=== PATIENT | female | born 1990 | race Caucasian/White ===

== ENCOUNTER 2023-04-23 04:47 | Emergency (ER) | payer OTHER ==
[2023-04-23 05:41] LABS: Absolute Lymphocytes (CBC) 1.4 K/uL (0.7-4.9); Hematocrit 44.5 % (36.0-45.0); Lymphocytes % 15.2 % (15.3-44.8); MCV 94.5 fL (80-100); MPV 8.5 fL (7.6-11.3); Platelets 221 thou/uL (152-406); RBC Red Blood Cell Count 4.71 M/uL (3.86-4.86)
[2023-04-23 05:43] LABS: Urine Bilirubin NEGATIVE (Negative); Urine Blood Negative (Negative); Urine Clarity Turbid (Clear); Urine Color Yellow (Yellow); Urine Glucose NEGATIVE (Negative)
[2023-04-23 05:44] LABS: Urine Bacteria None Seen /HPF (<20); Urine Protein NEGATIVE (Negative); Urine RBC None Seen /HPF (None Seen); Urine Urobilinogen Normal (Normal)
[2023-04-23 05:56] LABS: Albumin 4.1 g/dL (3.4-5.0); Bilirubin Total 1.1 mg/dL (0.2-1.0); Potassium 3.5 mEq/L (3.5-5.1); Protein, Total 8.4 g/dL (6.4-8.2)
[2023-04-23] MEDS ORDERED: NA CHLORIDE 0.9% 1,000 ML ONE (06:19)
[2023-04-23] MEDS ORDERED: DIPHENHYDRAMINE 50 MG/ML VIAL ONE (06:19)
[2023-04-23] MEDS ORDERED: METOCLOPRAMIDE 10 MG/2mL INJ ONE (06:19)
[2023-04-23] MEDS ORDERED: KETOROLAC 30 MG/ML INJ ONE (06:19)
[2023-04-23 07:00] LABS: SARS-CoV-2 Antigen Rapid Res Negative (Negative)
--- NOTE | 2023-04-23 07:10 | EDPHYS ---
Physician Documentation [facility] Name: Elise Rae Age: 33 yrs Sex: Female : 1990 Arrival Date: 04/23/2023 Time: 04:47 Bed 5 Private MD: ED Physician Salvador Huitron HPI: 04/23 05:34 This 33 yrs old Female presents to ER via Ambulatory with complaints of rupinder Headache. 05:34 The patient complains of pain to the top of head, forehead, left frontal area, left rupinder side of the back of head, right frontal area and right side of the back of head. The patient describes the headache as aching, constant. Onset: The symptoms/episode began/occurred yesterday. Associated signs and symptoms: The patient has no apparent associated signs or symptoms. Severity of symptoms: At its worst the pain was moderate, in the emergency department the pain is unchanged. Headache History: The patient has had previous headaches and this one is different than previous episodes. The symptoms are alleviated by nothing. the symptoms are aggravated by nothing. The patient has not experienced similar symptoms in the past. Historical: - Allergies: 05:14 No Known Allergies; pf1 - PMHx: 05:14 None; pf1 - PSHx: 05:14 gastric sleeve; left hand repair; pf1 05:15 left foot surgery; pf1 - Immunization history:: Adult Immunizations up to date, Client reports having NOT received the Covid vaccine. Last tetanus immunization: > 10 years ago Flu vaccine is not up to date. - Social history:: Smoking status: Patient denies any tobacco usage or history of. Patient uses alcohol, occasionally. Patient/guardian denies using street drugs. ROS: 05:35 Constitutional: Negative for fever, chills, and weight loss, Eyes: Negative for injury, rupinder pain, redness, and discharge, ENT: Negative for injury, pain, and discharge, Neck: Negative for injury, pain, and swelling, Cardiovascular: Negative for chest pain, palpitations, and edema, Respiratory: Negative for shortness of breath, cough, wheezing, and pleuritic chest pain, Abdomen/GI: Negative for abdominal pain, nausea, vomiting, diarrhea, and constipation, Back: Negative for injury and pain, : Negative for injury, bleeding, discharge, and swelling, MS/Extremity: Negative for injury and deformity, Skin: Negative for injury, rash, and discoloration, Psych: Negative for depression, anxiety, suicide ideation, homicidal ideation, and hallucinations, Allergy/Immunology: Negative for hives, rash, and allergies, Endocrine: Negative for neck swelling, polydipsia, polyuria, polyphagia, and marked weight changes, Hematologic/Lymphatic: Negative for swollen nodes, abnormal bleeding, and unusual bruising, 05:35 Neuro: Positive for headache, weakness, Exam: 05:35 Constitutional: This is a well developed, well nourished patient who is awake, alert, rupinder and in no acute distress. Head/Face: Normocephalic, atraumatic. Eyes: Pupils equal round and reactive to light, extra-ocular motions intact. Lids and lashes normal. Conjunctiva and sclera are non-icteric and not injected. Cornea within normal limits. Periorbital areas with no swelling, redness, or edema. ENT: Nares patent. No nasal discharge, no septal abnormalities noted. Tympanic membranes are normal and external auditory canals are clear. Oropharynx with no redness, swelling, or masses, exudates, or evidence of obstruction, uvula midline. Mucous membranes moist. Neck: Trachea midline, no thyromegaly or masses palpated, and no cervical lymphadenopathy. Supple, full range of motion without nuchal rigidity, or vertebral point tenderness. No Meningismus. Chest/axilla: Normal chest wall appearance and motion. Nontender with no deformity. No lesions are appreciated. Cardiovascular: Regular rate and rhythm with a normal S1 and S2. No gallops, murmurs, or rubs. Normal PMI, no JVD. No pulse deficits. Respiratory: Lungs have equal breath sounds bilaterally, clear to auscultation and percussion. No rales, rhonchi or wheezes noted. No increased work of breathing, no retractions or nasal flaring. Abdomen/GI: Soft, non-tender, with normal bowel sounds. No distension or tympany. No guarding or rebound. No evidence of tenderness throughout. Back: No spinal tenderness. No costovertebral tenderness. Full range of motion. Skin: Warm, dry with normal turgor. Normal color with no rashes, no lesions, and no evidence of cellulitis. MS/ Extremity: Pulses equal, no cyanosis. Neurovascular intact. Full, normal range of motion. Neuro: Awake and alert, GCS 15, oriented to person, place, time, and situation. Cranial nerves II-XII grossly intact. Motor strength 5/5 in all extremities. Sensory grossly intact. Cerebellar exam normal. Normal gait. 05:35 Neck: ROM/movement: is normal, no acute changes, Meningeal signs: are not present, Kernig's sign is negative, Brudzinski's sign is negative, Vital Signs: 05:02 BP 127 / 94; Pulse 86; Resp 16; Temp 97.8; Pulse Ox 98% on R/A; Weight 89.36 kg; Height pf1 5 ft. 6 in. ; Pain 10/10; 06:30 BP 120 / 83; Pulse 76; Resp 16; Pulse Ox 96% on R/A; km8 05:02 Body Mass Index 31.80 (89.36 kg, 167.64 cm) pf1 05:02 Pain Scale: Adult pf1 [place] Coma Score: 06:45 Eye Response: spontaneous(4). Motor Response: obeys commands(6). Verbal Response: km8 oriented(5). Total: 15. MDM: 04:52 Patient medically screened. [facility] 04/23 05:22 Order name: CBC with Diff; Complete Time: 06:21 [facility] 04/23 05:22 Order name: Comprehensive Metabolic Panel; Complete Time: 06:21 [facility] 04/23 05:22 Order name: Urinalysis w/ reflexes; Complete Time: 06:21 [facility] 04/23 05:22 Order name: PREGU; Complete Time: 06:21 [facility] 04/23 05:38 Order name: SARS RAPID; Complete Time: 07:13 [facility] 04/23 05:38 Order name: Flu; Complete Time: 07:13 [facility] 04/23 05:22 Order name: CT Head Brain wo Cont [facility] 04/23 05:33 Order name: CT Head Angio [facility] 04/23 05:33 Order name: CT Neck Angio [facility] 04/23 05:33 Order name: Oxygen: 2 liters; Complete Time: 06:43 [facility] Administered Medications: 06:13 Drug: NS 0.9% IV 1000 ml IV at 1 bolus Per protocol; 1000 mL bolus Route: IV; Rate: 1 pf1 bolus; Site: left antecubital; 07:20 Follow up: IV Status: Completed infusion iw 06:13 Drug: Ketorolac IVP 30 mg IVP once Route: IVP; Site: left antecubital; pf1 06:45 Follow up: Response: No adverse reaction km8 06:13 Drug: metoCLOPramide IVP 10 mg IVP once; over 1 to 2 minutes Route: IVP; Site: left pf1 antecubital; 06:44 Follow up: Response: No adverse reaction km8 06:13 Drug: diphenhydrAMINE IVP 50 mg IVP once Route: IVP; Site: left antecubital; pf1 06:44 Follow up: Response: No adverse reaction km8 Disposition Summary: 04/23/23 07:10 Discharge Ordered Notes: Location: Home rupinder Problem: new rupinder Symptoms: have improved rupinder Condition: Stable rupinder Diagnosis - Headache rupinder Followup: rupinder - With: Private Physician - When: 2 - 3 days - Reason: Recheck today's complaints, Continuance of care, Re-evaluation by your physician Followup: rupinder - With: Param Cobian MD - When: 2 - 3 days - Reason: Recheck today's complaints, Re-evaluation by your physician Discharge Instructions: - Discharge Summary Sheet rupinder - General Headache Without Cause rupinder - Migraine Headache rupinder - Migraine Headache, [id number] rupinder - General Headache Without Cause, [id number] rupinder Forms: - Medication Reconciliation Form [facility] - Thank You Letter [facility] - Antibiotic Education rupinder - Prescription Opioid Use rupinder - Patient Portal Instructions [facility] - Leadership Thank You Letter [facility] Prescriptions: - Fioricet with Codeine [id number] mg Oral capsule - take 2 capsule ORAL route every 4 hours do not exceed 6 caps per day; 20 rupinder capsule; Refills: 0, Product Selection Permitted - ondansetron 4 mg Oral Tablet,disintegrating - take 1 tablet ORAL route every 6 to 8 hours for 3 days; 20 tablet; Refills: 0, rupinder Product Selection Permitted Signatures: Dispatcher [employer] Salvador Donis MD MD cha Patel, Setul, MD MD sp3 Marcelle Arthur RN RN pf1 Naty Elizabeth RN iw Lesly Phoenix RN km8 Corrections: (The following items were deleted from the chart) 05:15 05:14 PSHx: let foot surgery; pf1 pf1
--- NOTE | 2023-04-23 07:10 | ER ---
Nurse's Notes [facility] Name: Elise Rae Age: 33 yrs Sex: Female : 1990 Arrival Date: 04/23/2023 Time: 04:47 Bed 5 Private MD: Diagnosis: Headache Presentation: 04/23 05:02 Chief complaint: Patient states: headache pain of 10,onset yesterday with nausea this pf1 AM. Coronavirus screen: Vaccine status: Patient reports being unvaccinated. Client denies travel out of the [place] in the last 14 days. At this time, the client does not indicate any symptoms associated with coronavirus-19. Ebola Screen: Patient negative for fever greater than or equal to 101.5 degrees Fahrenheit, and additional compatible Ebola Virus Disease symptoms. Initial Sepsis Screen: Does the patient meet any 2 criteria? No. Patient's initial sepsis screen is negative. Does the patient have a suspected source of infection? No. Patient's initial sepsis screen is negative. Risk Assessment: Do you want to hurt yourself or someone else? Patient reports no desire to harm self or others. 05:02 Method Of Arrival: Ambulatory pf1 05:02 Acuity: VIOLETA 3 pf1 06:47 Onset of symptoms was April 23, 2023. km8 Triage Assessment: 05:15 Headache History: The patient has had previous headaches and this one is different than pf1 previous episodes. General: Appears in no apparent distress. comfortable, well groomed, well developed, Behavior is calm, cooperative, appropriate for age, quiet. Pain: Complains of pain in generalized Pain currently is 10 out of 10 on a pain scale. EENT: No deficits noted. No signs and/or symptoms were reported regarding the EENT system. Neuro: Level of Consciousness is awake, alert, obeys commands, Oriented to person, place, time, situation, Reports headache in right in left frontal area, occipital area. Cardiovascular: No deficits noted. Capillary refill < 3 seconds Patient's skin is warm and dry. Respiratory: No deficits noted. Airway is patent Respiratory effort is even, unlabored, Respiratory pattern is regular, symmetrical. GI: Abdomen is round non-distended, Reports nausea. : No deficits noted. No signs and/or symptoms were reported regarding the genitourinary system. Derm: No deficits noted. No signs and/or symptoms reported regarding the dermatologic system. 07:22 Pain: Pain began Also complains of no other associated symptoms. iw Historical: - Allergies: 05:14 No Known Allergies; pf1 - PMHx: 05:14 None; pf1 - PSHx: 05:14 gastric sleeve; left hand repair; pf1 05:15 left foot surgery; pf1 - Immunization history:: Adult Immunizations up to date, Client reports having NOT received the Covid vaccine. Last tetanus immunization: > 10 years ago Flu vaccine is not up to date. - Social history:: Smoking status: Patient denies any tobacco usage or history of. Patient uses alcohol, occasionally. Patient/guardian denies using street drugs. Screenin:29 [facility] ED Fall Risk Assessment (Adult) History of falling in the last 3 months, pf1 including since admission No falls in past 3 months (0 pts) Confusion or Disorientation No (0 pts) Intoxicated or Sedated No (0 pts) Impaired Gait No (0 pts) Mobility Assist Device Used No (0 pt) Altered Elimination No (0 pt) Score/Fall Risk Level 0 - 2 = Low Risk Oriented to surroundings, Maintained a safe environment, Educated pt \T\ family on fall prevention, incl call for assistance when getting out of bed, Assessed \T\ reinforced patient's understanding of fall precautions, Provided non-skid footwear, Hourly rounding (assess needs \T\ fall precautionary measures) done, Used ambulatory aids as needed (educated on \T\ assisted with), Used gait belt as appropriate. Abuse screen: Denies threats or abuse. Nutritional screening: No deficits noted. Tuberculosis screening: No symptoms or risk factors identified. Assessment: 05:34 Reassessment: see triage assessment. pf1 06:45 General: Appears in no apparent distress. comfortable, Behavior is calm, cooperative, km8 appropriate for age. Pain: Complains of pain in head Pain currently is 4 out of 10 on a pain scale. Quality of pain is described as aching. Neuro: [place] Agitation-Sedation Scale (RASS): 0 - Alert and Calm Level of Consciousness is awake, alert, obeys commands, Oriented to person, place, time, situation, Reports headache. Cardiovascular: Denies chest pain, shortness of breath, Capillary refill < 3 seconds Patient's skin is warm and dry. Respiratory: Airway is patent Respiratory effort is even, unlabored, Respiratory pattern is regular, symmetrical. GI: No signs and/or symptoms were reported involving the gastrointestinal system. : No signs and/or symptoms were reported regarding the genitourinary system. EENT: No signs and/or symptoms were reported regarding the EENT system. Derm: No signs and/or symptoms reported regarding the dermatologic system. Skin is intact, Skin is dry, Skin is pink, warm \T\ dry. normal, Skin temperature is warm. Musculoskeletal: No signs and/or symptoms reported regarding the musculoskeletal system. Range of motion: intact in all extremities. 07:09 Reassessment: Patient appears in no apparent distress at this time. Patient and/or iw family updated on plan of care and expected duration. Pain level reassessed. Patient is alert, oriented x 3, equal unlabored respirations, skin warm/dry/pink. Vital Signs: 05:02 BP 127 / 94; Pulse 86; Resp 16; Temp 97.8; Pulse Ox 98% on R/A; Weight 89.36 kg; Height pf1 5 ft. 6 in. ; Pain 10/10; 06:30 BP 120 / 83; Pulse 76; Resp 16; Pulse Ox 96% on R/A; km8 05:02 Body Mass Index 31.80 (89.36 kg, 167.64 cm) pf1 05:02 Pain Scale: Adult pf1 [place] Coma Score: 06:45 Eye Response: spontaneous(4). Motor Response: obeys commands(6). Verbal Response: km8 oriented(5). Total: 15. ED Course: 04:51 Patient arrived in ED. [email or web address] 04:51 Salvador Huitron MD is Attending Physician. rupinder 05:14 Triage completed. pf1 05:30 No provider procedures requiring assistance completed. Inserted saline lock: 22 gauge pf1 in left antecubital area, using aseptic technique. Blood collected. 05:34 Patient has correct armband on for positive identification. pf1 05:34 PREGU Sent. pf1 05:34 Urinalysis w/ reflexes Sent. pf1 05:34 Comprehensive Metabolic Panel Sent. pf1 05:35 CBC with Diff Sent. pf1 06:03 CT Head Brain wo Cont In Process Unspecified. EDMS 06:03 CT Head Angio In Process Unspecified. EDMS 06:03 CT Neck Angio In Process Unspecified. EDMS 06:14 Flu Sent. pf1 06:14 SARS RAPID Sent. pf1 06:42 Lesly Phoenix, RN is Primary Nurse. km8 06:45 Pulse ox on. NIBP on. Door closed. Noise minimized. Lights dimmed. Warm blanket given. km8 06:45 Oxygen administration via nasal cannula \T\ 2L/min. km8 06:47 Arm band placed on right wrist. km8 07:09 Primary Nurse role handed off by Lesly Phoenix, NA iw 07:09 Naty Elizabeth, RN is Primary Nurse. iw 07:10 Param Cobian MD is Referral Physician. rupinder 07:22 IV discontinued, intact, bleeding controlled, No redness/swelling at site. Pressure iw dressing applied. Administered Medications: 06:13 Drug: NS 0.9% IV 1000 ml IV at 1 bolus Per protocol; 1000 mL bolus Route: IV; Rate: 1 pf1 bolus; Site: left antecubital; 07:20 Follow up: IV Status: Completed infusion iw 06:13 Drug: Ketorolac IVP 30 mg IVP once Route: IVP; Site: left antecubital; pf1 06:45 Follow up: Response: No adverse reaction km8 06:13 Drug: metoCLOPramide IVP 10 mg IVP once; over 1 to 2 minutes Route: IVP; Site: left pf1 antecubital; 06:44 Follow up: Response: No adverse reaction km8 06:13 Drug: diphenhydrAMINE IVP 50 mg IVP once Route: IVP; Site: left antecubital; pf1 06:44 Follow up: Response: No adverse reaction km8 Medication: 06:45 VIS not applicable for this client. km8 Outcome: 07:10 Discharge ordered by . rupinder 07:23 Discharged to home ambulatory, iw 07:23 Condition: good 07:23 Discharge instructions given to patient, Instructed on discharge instructions, follow up and referral plans. medication usage, Demonstrated understanding of instructions, follow-up care, medications, Prescriptions given X 2, 07:24 Patient left the ED. iw Signatures: Dispatcher [employer] Salvador Donis MD MD cha Williams, Irene, RN RN iw Zahida Hess j6 Marcelle Arthur RN RN pf1 Lesly Phoenix RN RN km8 Corrections: (The following items were deleted from the chart) 05:15 05:14 PSHx: let foot surgery; pf1 pf1
[2023-04-23 07:39] VITALS: TEMP 97.8
[2023-04-23 07:49] VITALS: BP 120/83; O2SAT 96
--- NOTE | 2023-04-23 21:38 | RAD REPORT ---
EXAM DESCRIPTION: CT - Head angio - 04/23/2023 7:13 am CLINICAL HISTORY: 33 years Female; HEADACHE; Bed Name: 1 TECHNIQUE: Noncontrast CT head. CT angiogram of the head and neck using intravenous contrast.. MIP reconstructions were performed. St enosis measurements performed using NASCET criteria. All CT scans at this facility use dose modulation, iterative reconstruction, and/or weight based dosi ng when appropriate to reduce radiation dose to as low as reasonably achievable. COMPARISON: None. FINDINGS: BRAIN (NON-CONTRAST): Parenchyma: No acute hemorrhage, large territorial infarction, or mass effect. Ventricles and extra-axial spaces: Appropriate for age. Visualized paranasal sinuses: Clear. Mastoid air cells: Clear. Bones: No acute focal abnormality. Additional comment: Indeterminate ovoid soft tissue lesions in the right bilateral superior parietal scalp measuring 7 mm 5 mm (noncontrast CT head series 201, image 25) and also noted in the right lowe r occipital scalp (noncontrast CT head series 201, image 6) measuring 8 mm. BRAIN (POST-CONTRAST): Enhancement: No abnormal enhancement. INTRACRANIAL ANGIOGRAM: Anterior circulation: No flow-limiting stenosis or aneurysm. Posterior circulation: No flow-limiting stenosis or aneurysm. Dural venous sinuses: Patent. Additional comment: None. EXTRACRANIAL ANGIOGRAM: Proximal great vessels: No flow-limiting stenosis or dissection. Cervical vessels: No flow-limiting stenosis or dissection. Additional comment: None. NECK: Soft tissues: Normal. Bones: No acute osseous finding. Lung apices: Clear. Additional comment: None. IMPRESSION: 1. No acute intracranial findings on noncontrast CT head. 2. No significant stenosis of the cervical carotid or vertebral arteries. 3. No acute intracranial large vessel occlusion or focal intracranial stenosis. 4. Indeterminate ovoid soft tissue lesions in the right bilateral superior parietal scalp and right lower occipital scalp measuring up to 8 mm. Recommend direct visualization. Electronically signed by: Ellen Mckeon MD 04/23/2023 06:34 AM REGISTERED PHARMACIST Due to temporary technical issues with the PACS/Fluency reporting system, reports are being signed by the in house radiologists without review as a courtesy to insure prompt reporting. The interpreting radiologist is fully responsible for the content of the report.
--- NOTE | 2023-04-23 21:51 | RAD REPORT ---
EXAM DESCRIPTION: CT - Neck Angio - 04/23/2023 7:14 am CLINICAL HISTORY: 33 years Female; HEADACHE; Bed Name: 1 TECHNIQUE: Noncontrast CT head. CT angiogram of the head and neck using intravenous contrast.. MIP reconstructions were performed. St enosis measurements performed using NASCET criteria. All CT scans at this facility use dose modulation, iterative reconstruction, and/or weight based dosi ng when appropriate to reduce radiation dose to as low as reasonably achievable. COMPARISON: None. FINDINGS: BRAIN (NON-CONTRAST): Parenchyma: No acute hemorrhage, large territorial infarction, or mass effect. Ventricles and extra-axial spaces: Appropriate for age. Visualized paranasal sinuses: Clear. Mastoid air cells: Clear. Bones: No acute focal abnormality. Additional comment: Indeterminate ovoid soft tissue lesions in the right bilateral superior parietal scalp measuring 7 mm 5 mm (noncontrast CT head series 201, image 25) and also noted in the right lowe r occipital scalp (noncontrast CT head series 201, image 6) measuring 8 mm. BRAIN (POST-CONTRAST): Enhancement: No abnormal enhancement. INTRACRANIAL ANGIOGRAM: Anterior circulation: No flow-limiting stenosis or aneurysm. Posterior circulation: No flow-limiting stenosis or aneurysm. Dural venous sinuses: Patent. Additional comment: None. EXTRACRANIAL ANGIOGRAM: Proximal great vessels: No flow-limiting stenosis or dissection. Cervical vessels: No flow-limiting stenosis or dissection. Additional comment: None. NECK: Soft tissues: Normal. Bones: No acute osseous finding. Lung apices: Clear. Additional comment: None. IMPRESSION: 1. No acute intracranial findings on noncontrast CT head. 2. No significant stenosis of the cervical carotid or vertebral arteries. 3. No acute intracranial large vessel occlusion or focal intracranial stenosis. 4. Indeterminate ovoid soft tissue lesions in the right bilateral superior parietal scalp and right lower occipital scalp measuring up to 8 mm. Recommend direct visualization. Electronically signed by: Ellen Mckeon MD 04/23/2023 06:34 AM BUILDING SURVEYOR Due to temporary technical issues with the PACS/Fluency reporting system, reports are being signed by the in house radiologists without review as a courtesy to insure prompt reporting. The interpreting radiologist is fully responsible for the content of the report.
--- NOTE | 2023-04-23 21:58 | RAD REPORT ---
EXAM DESCRIPTION: CT - Head Brain Wo Cont - 04/23/2023 7:13 am CLINICAL HISTORY: 33 years Female; HEADACHE; Bed Name: IW1 TECHNIQUE: Noncontrast CT head. CT angiogram of the head and neck using intravenous contrast.. MIP reconstructions were performed. St enosis measurements performed using NASCET criteria. All CT scans at this facility use dose modulation, iterative reconstruction, and/or weight based dosi ng when appropriate to reduce radiation dose to as low as reasonably achievable. COMPARISON: None. FINDINGS: BRAIN (NON-CONTRAST): Parenchyma: No acute hemorrhage, large territorial infarction, or mass effect. Ventricles and extra-axial spaces: Appropriate for age. Visualized paranasal sinuses: Clear. Mastoid air cells: Clear. Bones: No acute focal abnormality. Additional comment: Indeterminate ovoid soft tissue lesions in the right bilateral superior parietal scalp measuring 7 mm 5 mm (noncontrast CT head series 201, image 25) and also noted in the right lowe r occipital scalp (noncontrast CT head series 201, image 6) measuring 8 mm. BRAIN (POST-CONTRAST): Enhancement: No abnormal enhancement. INTRACRANIAL ANGIOGRAM: Anterior circulation: No flow-limiting stenosis or aneurysm. Posterior circulation: No flow-limiting stenosis or aneurysm. Dural venous sinuses: Patent. Additional comment: None. EXTRACRANIAL ANGIOGRAM: Proximal great vessels: No flow-limiting stenosis or dissection. Cervical vessels: No flow-limiting stenosis or dissection. Additional comment: None. NECK: Soft tissues: Normal. Bones: No acute osseous finding. Lung apices: Clear. Additional comment: None. IMPRESSION: 1. No acute intracranial findings on noncontrast CT head. 2. No significant stenosis of the cervical carotid or vertebral arteries. 3. No acute intracranial large vessel occlusion or focal intracranial stenosis. 4. Indeterminate ovoid soft tissue lesions in the right bilateral superior parietal scalp and right lower occipital scalp measuring up to 8 mm. Recommend direct visualization. Electronically signed by: Ellen Mckeon MD 04/23/2023 06:34 AM PRESS WORKER HELPER Due to temporary technical issues with the PACS/Fluency reporting system, reports are being signed by the in house radiologists without review as a courtesy to insure prompt reporting. The interpreting radiologist is fully responsible for the content of the report.
== END 2023-04-23 07:24 | disposition home or self-care (01) ==
LOC: ER 04:47
DX: R51.9 Headache, unspecified (principal); R53.1 Weakness; Z11.52 Encounter for screening for COVID-19; Z28.310 Unvaccinated for COVID-19
CPT/HCPCS: 96361; 85025; 81001; 36415; 81025; 80053; 87804 ×2; 70450; 70496; 70498; 96375; 96374; 99285; 87811; Q9967; J2765; J1200; J7030